=== PATIENT | female | born 1970 | race Caucasian/White ===

== ENCOUNTER 2019-05-28 12:29 | Outpatient (CLI) | payer OTHER ==
--- NOTE | 2019-05-28 14:57 | MRI ---
EXAM: Left shoulder MRI without contrast: HISTORY: Left shoulder pain, painful range of motion COMPARISON: None FINDINGS: Multiplanar, multisequence MRI examination of the shoulder is performed. A C joint:Arthrosis with prominent downsloping of the anterior acromium. Supraspinatus tendon: Intact. Infraspinatus tendon: Intact. Biceps tendon: Intact. Subscapularis tendon: Intact. Rotator cuff muscles: Within normal limits of signal and volume. Glenoid labrum: Abnormal linear focus of high signal involving the superior labrum probably a small f ocal SLAP tear with some posterior extension. No evidence for acute osteochondral defect or significant abnormal marrow signal. IMPRESSION: Downsloping of the anterior acromium. No evidence for rotator cuff tear. Evidence for small SLAP tear with some posterior extension.
== END 2019-05-28 12:30 | disposition home or self-care (01) ==
LOC: BICMRI 12:29
PROVIDERS: ATTEND Family Medicine
DX: M25.512 Pain in left shoulder (principal); S43.432A Superior glenoid labrum lesion of left shoulder, initial encounter; M89.8X1 Other specified disorders of bone, shoulder